=== PATIENT | male | born 1990 | race Caucasian/White ===

== ENCOUNTER 2019-05-27 15:21 | Emergency (ER) | payer SELFPAY ==
[~2019-05-27] VITALS: Ht 165.1 cm; Wt 61.2 kg
[2019-05-27] MEDS ORDERED: HYDROCODONE/APAP 7.5MG-325MG 1 EA TAB PO PRN (15:30)
[2019-05-27] MEDS ORDERED: TETANUS/DIPHTHERIA TOX ADULT 0.5 ML SYR IM ONE (15:30)
[2019-05-27] MEDS ORDERED: CEFAZOLIN SOD 1 GM VIAL IM SCH (17:15)
[2019-05-27] MEDS ORDERED: LIDOCAINE HCL 1% LOCAL INJ 20 ML VIAL ONE (17:20)
[2019-05-27] MEDS ORDERED: LIDOCAINE VISC 2% SOLN 15 ML UDC PO NR (17:30)
--- NOTE | 2019-05-27 17:41 | Diagnostic Imaging Report ---
Exam: Left small finger radiographs-3 views History: Slammed finger. Comparison: None. Findings/Impression: There is soft tissue irregularity with laceration of the distal aspect of the small finger. The distal phalanx of the small finger may be partially exposed at the tuft. No evidence of acute displaced fracture. However, there is some irregularity at the distal aspect of the small finger distal phalangeal tuft, nondisplaced fracture is possible. Surrounding soft tissue edema. Signed by: Dr. David Terry MD on 05/27/2019 5:37 PM
[2019-05-27 18:34] VITALS: BP 147/93
--- OUTSIDE RECORDS SUMMARY | 2019-06-01 12:28 | XMS REPORT ---
Author Author [facility] Address Unknown Phone Unavailable Care Team Providers Care Relations Mgr Name Role Phone TAMIA WYNN Unavailable Unavailable Problems This patient has no known problems. Allergies, Adverse Reactions, Alerts This patient has no known allergies or adverse reactions. Medications This patient has no known medications. Results Test Description Test Time Test Comments Text Results Atomic Results Result Comments FINGER LEFT 2019-05-27 17:34:00 [facility] [address] [address] Patient Name: DENISA LÓPEZ MR #: [id number] : 1990 Age/Sex: 29/M Req #: [id number] Adm Physician: Ordered by: TAMIA WAGNER [employer] Report #: [id number] Location: ER Room/Bed: Procedure: [id number] DX/FINGER LEFT Exam Date: 05/27/19 Exam Time: 1645 REPORT STATUS: Signed Exam: Left small finger radiographs-3 views History: Slammed finger. Comparison: None. Findings/Impression: There is soft tissue irregularity with laceration of the distal aspect of the small finger. The distal phalanx of the small finger may be partially exposed at the tuft. No evidence of acute displaced fracture. However, there is some irregularity at the distal aspect of the small finger distal phalangeal tuft, nondisplaced fracture is possible. Surrounding soft tissue edema. Signed by: Dr. Danny Hanley MD on 05/27/2019 5:37 PM Dictated By: DANNY HANLEY MD 173 Transcribed By: ROD on 05/27/191736 COPY TO: TAMIA WAGNER NP
== END 2019-05-27 18:32 | disposition home or self-care (01) ==
LOC: ER 15:21
DX: S68.127A Partial traumatic metacarpophalangeal amputation of left little finger, initial encounter (principal); W23.1XXA Caught, crushed, jammed, or pinched between stationary objects, initial encounter; Y92.008 Other place in unspecified non-institutional (private) residence as the place of occurrence of the external cause
CPT/HCPCS: 12001; 73140; 90471; 90714; 99283; J0690; J2001